=== PATIENT | female | born 1940 | race Caucasian/White ===

== ENCOUNTER 2021-04-21 17:24 | Emergency (ER) | payer OTHER, MEDICAID ==
[~2021-04-21] VITALS: Ht 152.4 cm; Wt 68.5 kg
[2021-04-21 17:30] VITALS: BP 132/51
[2021-04-21] MEDS ORDERED: methylPREDNISolone SS 125 MG/2 ML VIAL IVP ONE (17:30)
[2021-04-21] MEDS ORDERED: FUROSEMIDE 40 MG/4 ML VIAL IVP ONE (17:30)
[2021-04-21] MEDS ORDERED: ALBUTEROL SULFATE/IPRATROPIU 3 ML SOL IH ONE (17:30)
[2021-04-21 17:41] VITALS: BP 132/51
--- NOTE | 2021-04-21 17:48 | NUR ---
81/F biba with c/o shortness of breath. Per EMS patients family called 911 stating patient has been in respiratory distress since Tuesday. EMS states patient was on 6L nasal cannula on at home oxygen with an oxygen saturation of 76%. Stating they placed patient on bipap and oxygen saturation was at 98%. Patient is non ambulatory at baseline, appears in respiratory distress, Patient placed in gown on bedside cardiac monitory, 97% on bipap. Dr. Quintero, RT at bedside.
--- NOTE | 2021-04-21 17:49 | NUR ---
current bipap settings as follows; I/E: 14/6 Rate 14 FIo2 100
[2021-04-21 17:51] LABS: HEMATOCRIT 27.3 % (36-48); HEMOGLOBIN 8.8 g/dL (12.0-16.0); MEAN CORPUSCULAR HEMOGLOBIN 30 pg (27-31); MEAN CORPUSCULAR HGB CONC 32 g/dL (33-37); MEAN CORPUSCULAR VOLUME 92.6 fL (80-94); PLATELET COUNT (AUTO) 464 K/uL (140-450); RED BLOOD CELL COUNT(AUTO) 2.95 MIL/uL (4.20-5.40)
[2021-04-21 18:15] LABS: LYMPHOCYTES % (MANUAL) 1 % (20-46); METAMYELOCYTES % 1 % (0-0); PROMYELOCYTES % 2 % (0-0)
[2021-04-21] MEDS ORDERED: NACL 0.9% 1,000 ML IV ONE ×2 (18:45)
[2021-04-21] MEDS ORDERED: SODIUM BICARBONATE 8.4% PFS 50 MEQ/50 ML SYR IVP ONE (18:45)
[2021-04-21] MEDS ORDERED: PIPERACILLIN/TAZOBACTAM 3.375 GM in DEXTROSE 5% 50 ML IV ONE (18:45)
[2021-04-21] MEDS ORDERED: MORPHINE SULFATE 2 MG/ML SYR IVP ONE (18:45)
--- NOTE | 2021-04-21 19:00 | NUR ---
100 meq bicarb ordered IVP, asked Dr. Quintero if he would like medication given through Central line or PICC line, stated okay to give peripherally through IV.
--- NOTE | 2021-04-21 19:20 | NUR ---
kassie covid and influenza a & b completed. taken to lab
--- NOTE | 2021-04-21 19:20 | NUR ---
RECIEVED REPORT FROM PATRICIA BELL. TRANSFER OF CARE AT THIS TIME
[2021-04-21] MEDS ORDERED: PIPERACILLIN/TAZOBACTAM 3.375 GM VIAL IV ONE (19:22)
--- NOTE | 2021-04-21 20:06 | NUR ---
RT AND MEMO KOEHLER AT BEDSIDE
[2021-04-21 20:24] LABS: ALBUMIN 2.8 g/dL (3.4-5.0); ANION GAP 17.5 (8-16); ASPARTATE AMINOTRANSFERASE 36 U/L (15-37); CARBON DIOXIDE 22.5 mmol/L (21-32); CHLORIDE 100 mmol/L (98-107); CREATININE 2.6 mg/dL (0.6-1.3); GLUCOSE 151 mg/dL (74-106); SODIUM SERUM 136 mmol/L (136-145); TOTAL BILIRUBIN 0.5 mg/dL (0.0-1.0)
[2021-04-21] MEDS ORDERED: KCL 20 MEQ/WATER INJ PREMIX 200 ML IV PRN (20:25)
[2021-04-21] MEDS ORDERED: NACL 0.9% 1,000 ML IV SCH (20:25)
[2021-04-21] MEDS ORDERED: ACETAMINOPHEN 325 MG TAB PO PRN (20:25)
[2021-04-21] MEDS ORDERED: VANCOMYCIN PER PHARMACY MC PRN (20:25)
[2021-04-21] MEDS ORDERED: MAG SULF 2000 MG/WATER PREMIX 50 ML IV PRN (20:25)
[2021-04-21] MEDS ORDERED: POTASSIUM CHLORIDE 10 MEQ TABER PO PRN (20:25)
[2021-04-21] MEDS ORDERED: MAGNESIUM OXIDE 400 MG TAB PO PRN (20:25)
[2021-04-21] MEDS ORDERED: LORazepam 1 MG TAB PO PRN (20:25)
[2021-04-21] MEDS ORDERED: HYDROcodone/APAP 5/325 MG 1 TAB TAB PO PRN (20:25)
[2021-04-21] MEDS ORDERED: ONDANSETRON 4 MG/2 ML VIAL IVP PRN (20:25)
[2021-04-21] MEDS ORDERED: MORPHINE SULFATE 4 MG/ML SYR IVP PRN (20:25)
[2021-04-21 20:28] LABS: UREA NITROGEN, BLOOD 83 mg/dL (7-18)
[2021-04-21] MEDS ORDERED: VANCOMYCIN 1,000 MG in DEXTROSE 5% 250 ML IV ONE (21:00)
--- NOTE | 2021-04-21 21:00 | NUR ---
PT. LAYING IN SUPINE POSITION, SPOUSE AT BEDSIDE. NO RESP. DISTRESS NOTED.
--- NOTE | 2021-04-21 21:21 | NUR ---
PT. TAKEN TO CT VIA GURGAIL, ACCOMPANIED BY RN, RT, AND CT.
--- NOTE | 2021-04-21 21:38 | NUR ---
PT. BACK FROM CT.
--- NOTE | 2021-04-21 23:36 | NUR ---
Dr. Quintero examining patient.
--- NOTE | 2021-04-22 00:30 | NUR ---
DAUGHTER (ESTELA) WANTS UPDATES REGARDING PATIENT. PHONE NUMBERS ARE FOLLOWS: DAUGHTERS: ESTELA BRODERICK - DELIO SACHA - [phone]
--- NOTE | 2021-04-22 01:40 | NUR ---
1000 OUTPUT FOR JEREMY ESCALERA
--- NOTE | 2021-04-22 03:50 | NUR ---
CALLED TO REPORT TO [facility], LINE WAS NOT PICKED UP.
--- NOTE | 2021-04-22 03:55 | NUR ---
XRAY AT BEDSIDE TO VERIFY NG TUBE PLACEMENT
--- NOTE | 2021-04-22 04:10 | NUR ---
Patient to be transferred to [facility]. Is being transferred due to HIGHER LEVEL OF CARE. Receiving facility has accepting physician and available space. ER physician has signed transfer form. Patient or responsible green party has agreed to transfer and signed form. Patient belongings inventoried and will be sent with patient. Copy of nursing notes, lab reports, EKG, Physicians Orders and X-rays to be sent with patient. Report called to PATRICIA DELUNA at receiving facility. ETA ARRIVAL OF TRANSPORT [id number].
--- NOTE | 2021-04-22 04:10 | NUR ---
CALLED REPORT TO PATRICIA DELUNA ([facility]).
--- NOTE | 2021-04-22 04:41 | NUR ---
CALLED DELIO (DAUGHTER) FOR UPDATE ON PT.
--- NOTE | 2021-04-22 05:45 | NUR ---
DELAY IN TRANSPORT, [facility] STATES TRANSPORT CREW IS ON A BED DELAY.
[2021-04-22] MEDS ORDERED: PIPERACILLIN/TAZOBACTAM 2.25 GM in DEXTROSE 5% 50 ML IV SCH (06:00)
--- NOTE | 2021-04-22 06:27 | NUR ---
[facility] TRANSPORT AT BEDSIDE
[2021-04-22 06:37] VITALS: BP 151/52
[2021-04-22] MEDS ORDERED: ENOXAPARIN 40 MG/0.4 ML SYR SUBQ SCH (09:00)
== END 2021-04-22 06:47 | disposition short-term general hospital (02) ==
LOC: MED 17:24 → UNDOADMIN 20:33 → MMU 20:33 → MED 04-22 06:47
DX: J96.10 Chronic respiratory failure, unspecified whether with hypoxia or hypercapnia (principal); Z20.822 Contact with and (suspected) exposure to COVID-19; K56.609 Unspecified intestinal obstruction, unspecified as to partial versus complete obstruction; A41.9 Sepsis, unspecified organism; J44.9 Chronic obstructive pulmonary disease, unspecified; E11.9 Type 2 diabetes mellitus without complications; I10 Essential (primary) hypertension
CPT/HCPCS: 36415; 36600; 71045; 74018; 74176; 80053; 82803; 83605; 83880; 84484; 85025; 85379; 87040; 87426; 87804; 93005; 94640; 96361; 96365; 96375; 99291; 99292; J1940; J2543; J2930; J7030; J2270